=== PATIENT | female | born 1985 | race Caucasian/White ===

== ENCOUNTER 2022-09-05 15:25 | Emergency (ER) | payer OTHER, SELFPAY ==
[2022-09-05 15:29] VITALS: BP 161/85; PULSE 71; RESP 18; TEMP 37.1; O2SAT 99; BMI 39.8
--- NOTE | 2022-09-05 15:47 | ECG_ITS ---
[facility] Test Date: 2022-09-05 Pat Name: Arielle Stanton Department: Room: Gender: Female Production Line Technician: : [id number] Requested By: Garland Kelly Order Number: [id number] Jatin MD: Serge Hurst M.D. Measurements Intervals Bryant Rate: 72 P: 30 CO: 132 QRS: -1 QRSD: 101 T: 23 QT: 398 QTc: 437 Interpretive Statements SINUS RHYTHM No previous ECG available for comparison Electronically Signed On 09-05-2022 15:56:40 SOD STRIPPER by Serge Hurst M.D. [id number]
--- NOTE | 2022-09-05 16:33 | XRR_ITS ---
PROCEDURE INFORMATION: Exam: XR Chest Exam date and time: 09/05/2022 4:40 PM Age: 37 years old Clinical indication: Cough and shortness of breath; Prior surgery; Surgery date: <1 month; Surgery type: Thyroid; Additional info: Dyspnea/cough TECHNIQUE: Imaging protocol: Radiologic exam of the chest. Views: 1 view. COMPARISON: No relevant prior studies available. FINDINGS: Lungs: Unremarkable. No consolidation. Pleural spaces: Unremarkable. No pleural effusion. No pneumothorax. Heart/Mediastinum: Unremarkable. No cardiomegaly. Bones/joints: Unremarkable. XR/XR chest 1V portable [id number] IMPRESSION: No acute findings.
--- NOTE | 2022-09-05 16:49 | W.ED.CHESTPA ---
HPI - Chest Pain General: Chief Complaint: Chest Pain Stated Complaint: chest pain Time Seen by Provider: 09/05/22 16:33 Source: patient Mode of arrival: ambulatory History of Present Illness: 37-year-old female presents emergency room. She had a partial thyroidectomy about 3 weeks ago. She had home positive test for COVID. She has not been short of breath she has a history of DVT. She is not on any anticoagulant at this time she has not had any chest pain. She has had no respiratory compromise. On arrival here vital signs are stable oxygen saturations are normal she is concerned that she may have a blood clot. She has had a nonproductive cough some loose stools upper respiratory congestion no anosmia. MD complaint: chest pain Onset (ago): day(s) Pain radiation: none Severity: mild Relieving factors: nothing Exacerbating factors: nothing Context: recent illness Associated symptoms: Reports dyspnea and fever(s); Deny abdominal pain, diaphoresis, leg edema, nausea, palpitations or sense of impending doom Treatment prior to arrival: none Review of Systems Const: Reports: fever(s), chills, fatigue and malaise; Denies: diaphoresis Eyes: Denies: change in vision ENMT: Denies: throat pain, ear or mastoid pain, nasal discharge or nasal congestion Card: Denies: chest pain, palpitations, irregular heart rhythm, edema or swelling of feet/ankles Resp: Reports: dyspnea and non-productive cough; Denies: productive cough or wheezing GI: Denies: abdominal pain or nausea : Denies: flank pain, difficulty voiding, dysuria, urinary frequency or urinary urgency Skin/Breast: Denies: rash or pruritus [facility] PFSH: Medical History (Updated 09/19/22 @ 11:21 by Garland Schuster DO) History of deep vein thrombosis Thyroid ca Surgical History (Updated 09/19/22 @ 11:19 by Garland Schuster DO) S/P partial thyroidectomy Social History (Updated 09/19/22 @ 11:20 by Garland Schuster DO) Smoking and tobacco status: never smoked Alcohol intake: current Alcohol intake frequency: holidays/special occasions only Physical Exam Const: GENERAL APPEARANCE: cooperative and comfortable ORIENTATION/CONSCIOUSNESS: Yes awake, Yes oriented to person, Yes oriented to place and Yes oriented to time HENMT: COMMON NORMALS: normocephalic, atraumatic and hearing grossly normal bilaterally HEAD & SCALP: normocephalic and atraumatic Resp: COMMON NORMALS: normal respiratory effort, No retractions, No use of accessory muscles and clear to auscultation bilaterally AUSCULTATION: clear to auscultation bilaterally Cardio: COMMON NORMALS: regular rate, regular rhythm and No murmurs present (Cardio) RATE: regular rate RHYTHM: regular rhythm GI: COMMON NORMALS: Soft to palpation and No hepatosplenomegaly present AUSCULTATION: Yes normoactive bowel sounds PALPATION: Yes Soft to palpation, No Tenderness to palpation present (GI), No Guarding due to palpation present (GI) and Yes No hepatosplenomegaly present Extremity: COMMON NORMALS: normal to inspection, capillary refill normal, no clubbing, cyanosis or edema, no calf tenderness and no pedal edema Neuro: SENSORIUM/ORIENTATION: Yes oriented to person, Yes oriented to place and Yes oriented to time Skin: COMMON NORMALS: no rashes or lesions noted GENERAL SKIN EXAM: no rashes or lesions noted Course Vital Signs: Vital signs: Vital Signs Temperature 98.8 F 09/05/22 15:29 Pulse Rate 71 09/05/22 15:29 Respiratory Rate 18 09/05/22 15:29 Blood Pressure 161/85 09/05/22 15:29 Pulse Oximetry 99 09/05/22 15:29 Oxygen Delivery Me thod 09/05/22 15:29 MDM - Chest Pain Medical Decision Making Chest x-ray has no acute findings. Vital signs are stable significant chest pain no hypoxia no indication of PE at this time. Recommend observe reviewed with the patient signs and symptoms of PE return if is further problems Medical Records I reviewed the patient's medical records. Lab Data I reviewed the patient's lab results. Radiology Impressions Chest X-Ray 09/05/22 16:33 IMPRESSION: No acute findings. Discharge Plan Discharge Clinical Impression: COVID-19 Discharge Orders: Discharge ED (Routine); Ordered 09/05/22 Ordered By: Garland Schuster Referrals: Jared Carreon MD [Primary Care Provider] - Discharge Diet: Usual diet Discharge Activity: Increase activity as tolerated Patient Instructions: COVID-19 (Coronavirus Disease 2019) (ED), Opioid Safety, Pain Management Activity Restrictions/Additional Instructions: You were seen today for COVID. The cough chest discomfort and not unusual. Your vital signs are stable your oxygenation is good. If you have worsening difficulty with breathing return to the emergency room Coding Level of Care Code ED Classroom Instructional Aide for Candi Ramirez
== END 2022-09-05 17:13 | disposition home or self-care (01) ==
PROVIDERS: Emergency Provider Family Medicine; PCP Internal Medicine Medical Oncology
DX: U07.1 COVID-19 (principal); Z85.850 Personal history of malignant neoplasm of thyroid
CPT/HCPCS: 71045; 93005; 99284

== ENCOUNTER → 2025-04-08 12:48 | Outpatient (BNVA) | payer OTHER, SELFPAY | PROVIDERS: PCP Internal Medicine Medical Oncology; Visit Provider Internal Medicine | DX: E03.9 Hypothyroidism, unspecified (principal) | CPT/HCPCS: 36415; 84439; 84443 ==

== ENCOUNTER 2025-06-01 12:56 | Outpatient (CLI) | payer OTHER, SELFPAY ==
--- NOTE | 2025-06-01 13:00 | USR_ITS ---
PROCEDURE INFORMATION: Exam: US Soft Tissue Head and Neck, Thyroid Exam date and time: 06/01/2025 1:06 PM Age: 40 years old Clinical indication: Condition or disease; Cancer; Thyroid; Additional info: Thyroid cancer, please include tirads TECHNIQUE: Imaging protocol: Real-time ultrasound scan of the neck with image documentation. Exam focused on the thyroid. COMPARISON: US thyroid [id number] 11/30/2021 1:54 PM FINDINGS: Right thyroid lobe: Surgically absent. No abnormal soft tissue in the surgical bed. Left thyroid lobe: Surgically absent. No abnormal soft tissue in the surgical bed. Isthmus: Surgically absent. Lymph nodes: Prominent left submandibular lymph node with a fatty hilum measuring 1.0 x 0.7 x 1.0 cm. US/US thyroid [id number] IMPRESSION: 1. Status post total thyroidectomy. No abnormal soft tissue in the surgical bed. 2. Prominent left submandibular lymph node is nonspecific and could be reactive. Consider follow-up ultrasound or CT neck in 6-12 weeks to document stability.
== END 2025-06-01 12:57 | disposition home or self-care (01) ==
LOC: RAD 12:57
PROVIDERS: PCP Internal Medicine Medical Oncology; Visit Provider Internal Medicine
DX: C73 Malignant neoplasm of thyroid gland (principal); E89.0 Postprocedural hypothyroidism; Z98.890 Other specified postprocedural states; Z90.89 Acquired absence of other organs
CPT/HCPCS: 76536

== ENCOUNTER 2025-06-03 14:59 | Outpatient (CLI) | payer OTHER, SELFPAY ==
[2025-06-03 20:55] LABS: Free T4 Free Thyroxine 1.76 ng/dL (0.82-1.77); Thyroid Stimulating Hormone 0.59 uIU/mL (0.27-4.20)
== END 2025-06-03 15:00 | disposition home or self-care (01) ==
LOC: LAB 15:00
PROVIDERS: PCP Electrodiagnostic Medicine; Visit Provider Internal Medicine
DX: E03.9 Hypothyroidism, unspecified (principal)
CPT/HCPCS: 36415; 84439; 84443

== ENCOUNTER → 2025-06-04 12:25 | Outpatient (BNVA) | payer OTHER, SELFPAY | PROVIDERS: PCP Electrodiagnostic Medicine; Visit Provider Internal Medicine | DX: C73 Malignant neoplasm of thyroid gland (principal); E89.0 Postprocedural hypothyroidism | CPT/HCPCS: 36415; 84432; 84439; 84443; 86800 ==